=== PATIENT | male | born 1980 | race Caucasian/White ===

== ENCOUNTER 2021-11-07 00:52 | Emergency (ER) | payer SELFPAY ==
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
[2021-11-07] MEDS ORDERED: KETOROLAC 60 MG/2 ML VIAL IM ONE (01:15)
[2021-11-07 01:52] VITALS: BP 121/89
[2021-11-07] MEDS ORDERED: RX-CYCLOBENZAPRINE 10 MG (FLEXERIL) TAB PPK#3 PO STA (02:00)
[2021-11-07] MEDS ORDERED: CYCL10TA25 PO (02:02)
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
== END 2021-11-07 02:10 | disposition home or self-care (01) ==
LOC: ER 00:54
DX: M62.830 Muscle spasm of back (principal); Z28.310 Unvaccinated for COVID-19; V87.7XXA Person injured in collision between other specified motor vehicles (traffic), initial encounter; Y92.410 Unspecified street and highway as the place of occurrence of the external cause
CPT/HCPCS: 72070; 72100